=== PATIENT | male | born 1995 | race Two or more races ===

== ENCOUNTER 2020-07-02 16:52 | Emergency (ER) | payer MEDICAID, OTHER ==
[~2020-07-02] VITALS: Ht 175.3 cm; Wt 100.0 kg
[2020-07-02 16:59] VITALS: BP 132/74
--- NOTE | 2020-07-02 17:03 | NUR ---
Simran NEGRETE VIDEO EDITING INTERN EVALUATING PT
[2020-07-02] MEDS ORDERED: AMOX500C2 PO (17:14)
== END 2020-07-02 19:12 | disposition home or self-care (01) ==
LOC: ER 16:52
DX: J02.0 Streptococcal pharyngitis (principal); B95.0 Streptococcus, group A, as the cause of diseases classified elsewhere; Z72.89 Other problems related to lifestyle; Z88.8 Allergy status to other drugs, medicaments and biological substances; Z79.899 Other long term (current) drug therapy
CPT/HCPCS: 87880; 99283

== ENCOUNTER 2020-08-20 12:29 | Emergency (ER) | payer OTHER ==
[~2020-08-20] VITALS: Ht 175.3 cm; Wt 102.3 kg
[2020-08-20] MEDS ORDERED: meclizine 12.5mg tablet PO ONE (13:55)
[2020-08-20] MEDS ORDERED: MECL-159 PO (14:21)
[2020-08-20 14:39] VITALS: BP 118/77
== END 2020-08-20 14:36 | disposition home or self-care (01) ==
LOC: ER 12:29
DX: H81.10 Benign paroxysmal vertigo, unspecified ear (principal); Z79.899 Other long term (current) drug therapy; Z88.5 Allergy status to narcotic agent
CPT/HCPCS: 93005; 99283; J8597

== ENCOUNTER 2020-10-17 17:08 | Emergency (ER) | payer SELFPAY ==
[~2020-10-17] VITALS: Ht 175.3 cm; Wt 103.6 kg
[~2020-10-17 17:08] MED LIST: MECL-159 PO
[2020-10-17] MEDS ORDERED: TETanus/Pertussis (Acell)/Diphther VAC/PF (Tdap-Adult) 0.5ml syringe IMVAC ONE (17:35)
[2020-10-17] MEDS ORDERED: CEPH250T PO (18:10)
[2020-10-17 18:26] VITALS: BP 150/66
== END 2020-10-17 18:14 | disposition home or self-care (01) ==
LOC: ER 17:09
DX: S51.812A Laceration without foreign body of left forearm, initial encounter (principal); Z72.89 Other problems related to lifestyle; Z88.8 Allergy status to other drugs, medicaments and biological substances; Z79.2 Long term (current) use of antibiotics; Z79.899 Other long term (current) drug therapy; Z20.3 Contact with and (suspected) exposure to rabies; X58.XXXA Exposure to other specified factors, initial encounter; Y93.89 Activity, other specified; Y92.89 Other specified places as the place of occurrence of the external cause; Y99.8 Other external cause status
CPT/HCPCS: 12002; 90471; 90715; 99283

== ENCOUNTER 2023-03-18 16:28 | Emergency (ER) | payer MEDICAID ==
[~2023-03-18] VITALS: Ht 172.7 cm; Wt 92.4 kg
[2023-03-18] MEDS ORDERED: thiamine 100mg/ml 2ml inj. IV ONE (18:10)
[2023-03-18] MEDS ORDERED: folic acid 1mg/0.2ml inj IV ONE (18:10)
[2023-03-18] MEDS ORDERED: normal saline 1000ML IV soln IVB ONE (18:10)
[2023-03-18] MEDS ORDERED: ondansetron/PF 4mg/2ml inj IV ONE (18:10)
[2023-03-18 18:42] LABS: BASOPHILS % (AUTO) 1.2 % (0-1); EOSINOPHILS % (AUTO) 0.6 % (0-6); HEMATOCRIT 37.3 % (42.0-52.0); HEMOGLOBIN 12.6 g/dl (14.0-17.9); LYMPHOCYTES # (AUTO) 0.6 X10'3 (1.1-4.8); LYMPHOCYTES % (AUTO) 25.1 % (21-51); MEAN CORPUSCULAR HEMOGLOBIN 27.6 PG (27.0-31.0); MEAN CORPUSCULAR HGB CONC 33.7 g/dL (33.0-36.5); MEAN PLATELET VOLUME 8.8 FL (7.4-10.4); MONOCYTES # (AUTO) 0.3 X10'3 (0-0.9); MONOCYTES % (AUTO) 12.1 % (2-12); NEUTROPHILS # (AUTO) 1.5 X10'3 (1.8-7.7); RED BLOOD COUNT 4.55 X10'6 (4.70-6.10); RED CELL DISTRIBUTION WIDTH 18.8 % (11.5-14.5); WHITE BLOOD COUNT 2.5 X10'3 (4.5-11.0)
[2023-03-18 18:56] LABS: ALANINE AMINOTRANSFERASE 67 U/L (12-78); ALBUMIN 3.9 G/DL (3.4-5.0); ALBUMIN/GLOBULIN RATIO 0.7 (1.1-1.5); ALKALINE PHOSPHATASE 152 IU/L (46-116); ANION GAP 12 (8-16); ASPARTATE AMINO TRANSFERASE 174 U/L (10-37); BILIRUBIN,TOTAL 3.4 MG/DL (0.1-1.0); BLOOD UREA NITROGEN 4 MG/DL (7-18); BUN/CREATININE RATIO 5.3 (10.0-20.0); CALCIUM 8.6 MG/DL (8.5-10.1); CHLORIDE 97 MMOL/L (99-107); CREATININE 0.76 MG/DL (0.60-1.10); GLUCOSE 150 MG/DL (70-104); LIPASE 732 U/L (73-393); POTASSIUM 3.4 MMOL/L (3.5-5.1); SODIUM 133 MMOL/L (135-145); TOTAL CARBON DIOXIDE 23.8 MMOL/L (24-32); TOTAL PROTEIN 9.4 G/DL (6.4-8.2); eGFR > 90 ML/MIN
[2023-03-18 19:02] LABS: ETHANOL 0.317 GM/DL (0.0-0.010)
[2023-03-18 19:07] LABS: PLATELET COUNT 14 X10'3 (140-440)
--- NOTE | 2023-03-18 19:14 | NUR ---
CHARGE NURSE MAXWELL RESENDIZ NOTIFIED OF ADMISSION AND GIVEN FOLIC ACID IV MEDICATION.
[2023-03-18 19:40] LABS: ANISOCYTOSIS 2+; PLATELET ESTIMATE DECREASED; TOTAL CELLS COUNTED 100
[2023-03-18] MEDS ORDERED: THIA100T70 PO (21:00)
[2023-03-18] MEDS ORDERED: LEVE10002 PO (21:00)
[2023-03-18] MEDS ORDERED: TRAZ-251 PO (21:00)
--- NOTE | 2023-03-18 21:05 | NUR ---
PT IS RESTING QUIETLY ON BED, FAMILY AT BEDSIDE, MED REC DONE, PT C/O FEELING SHAKY, LAST ETOH INTAKE WAS TODAY, PT DRINKS 18 PACK + BEER A DAY
[2023-03-18] MEDS ORDERED: LORazepam 2 mg/ml vial IV ONE (21:15)
[2023-03-18] MEDS ORDERED: AMOX-117 PO (23:28)
[2023-03-18] MEDS ORDERED: ATI1T PO (23:28)
[2023-03-18 23:56] VITALS: BP 133/94
== END 2023-03-18 23:57 | disposition home or self-care (01) ==
LOC: ER 16:29
DX: K70.10 Alcoholic hepatitis without ascites (principal); K85.20 Alcohol induced acute pancreatitis without necrosis or infection; F12.10 Cannabis abuse, uncomplicated; K70.30 Alcoholic cirrhosis of liver without ascites; F10.129 Alcohol abuse with intoxication, unspecified; Z88.8 Allergy status to other drugs, medicaments and biological substances
CPT/HCPCS: 36415; 80053; 80320; 83690; 85007; 85025; 85610; 96361; 96374; 96375; 99285; J2060; J2405; J3411; J3490; J7030

== ENCOUNTER 2024-06-29 19:00 | Inpatient (IN) | payer MEDICAID ==
[~2024-06-29] VITALS: Ht 172.7 cm; Wt 108.9 kg
[2024-06-29] VITALS (7 sets, daily range): BP systolic 92–127; BP diastolic 44–82; PULSE 94–113; RESP 15–19; TEMP 97.6–98.1; O2SAT 92–97
[~2024-06-29 19:00] MED LIST changes: +ATI1T PO; +LEVE10002 PO; -MECL-159 PO; +THIA100T70 PO; +TRAZ-251 PO
[2024-06-29] MEDS: pantoprazole 40 MG vial IV STA (19:23)
[2024-06-29] MEDS: pantoprazole 40MG/NS 100ML BAG 100 ML IV SCH (19:37)
[2024-06-29 19:41] LABS: BASOPHILS # (AUTO) 0.1 X10'3 (0-0.2); EOSINOPHILS # (AUTO) 0.1 X10'3 (0-0.9); LYMPHOCYTES # (AUTO) 1.7 X10'3 (1.1-4.8)
[2024-06-29] MEDS: octreotide 100mcg/1 ml ampule IV ONE (19:44)
[2024-06-29] MEDS: octreotide inj. 500 MCG in normal saline 100ml IV soln 97.5 ML IV SCH (19:45)
[2024-06-29 19:52] LABS: APTT 29 SECONDS (22-32); INR 1.5 INR; PROTHROMBIN TIME 15.2 SECONDS (9.0-12.0)
[2024-06-29 19:53] LABS: HEMOGLOBIN 11.6 g/dl (14.0-17.9); NEUTROPHILS # (AUTO) 3.3 X10'3 (1.8-7.7)
[2024-06-29 19:55] LABS: ALANINE AMINOTRANSFERASE 47 U/L (12-78); ALBUMIN 2.9 G/DL (3.4-5.0); ALBUMIN/GLOBULIN RATIO 0.7 (1.1-1.5); ALKALINE PHOSPHATASE 175 IU/L (46-116); ANION GAP 12 (8-16); ASPARTATE AMINO TRANSFERASE 105 U/L (10-37); BASOPHILS % (AUTO) 1.8 % (0-1); BILIRUBIN,TOTAL 2.5 MG/DL (0.1-1.0); BLOOD UREA NITROGEN 8 MG/DL (7-18); BUN/CREATININE RATIO 8.8 (10.0-20.0); CALCIUM 7.5 MG/DL (8.5-10.1); CHLORIDE 105 MMOL/L (99-107); CREATININE 0.91 MG/DL (0.60-1.10); EOSINOPHILS % (AUTO) 1.4 % (0-6); GLUCOSE 161 MG/DL (70-104); HEMATOCRIT 34.2 % (42.0-52.0); LYMPHOCYTES % (AUTO) 29.2 % (21-51); MEAN CORPUSCULAR HEMOGLOBIN 28.5 PG (27.0-31.0); MEAN CORPUSCULAR HGB CONC 33.9 g/dL (33.0-36.5); MEAN CORPUSCULAR VOLUME 84.1 FL (78-98); MEAN PLATELET VOLUME 8.2 FL (7.4-10.4); MONOCYTES # (AUTO) 0.5 X10'3 (0-0.9); MONOCYTES % (AUTO) 9.3 % (2-12); NEUTROPHILS % (AUTO) 58.3 % (42-75); POTASSIUM 3.6 MMOL/L (3.5-5.1); RED BLOOD COUNT 4.07 X10'6 (4.70-6.10); RED CELL DISTRIBUTION WIDTH 16.8 % (11.5-14.5); SODIUM 138 MMOL/L (135-145); TOTAL CARBON DIOXIDE 21.1 MMOL/L (24-32); WHITE BLOOD COUNT 5.7 X10'3 (4.5-11.0); eCRCL 115 ML/MIN; eGFR > 90 ML/MIN
[2024-06-29 20:01] LABS: ETHANOL 366 MG/DL (<10)
[2024-06-29 20:07] LABS: PLATELET COUNT 36 X10'3 (140-440)
[2024-06-29] MEDS: ondansetron/PF 4mg/2ml inj IV ONE (20:11)
[2024-06-29] MEDS: phytonadione inj. 10 MG in normal saline 100ml IV soln 100 ML IV ONE (20:38)
[2024-06-29] MEDS ORDERED: acetaminophen 325mg tablet PO PRN (21:05)
[2024-06-29 21:20] LABS: BASOPHILS # (AUTO) 0.1 X10'3 (0-0.2); HEMOGLOBIN 10.7 g/dl (14.0-17.9); LYMPHOCYTES # (AUTO) 0.6 X10'3 (1.1-4.8); MEAN PLATELET VOLUME 8.3 FL (7.4-10.4); MONOCYTES # (AUTO) 0.4 X10'3 (0-0.9)
[2024-06-29 21:22] LABS: BASOPHILS % (AUTO) 1.2 % (0-1); EOSINOPHILS % (AUTO) 0.6 % (0-6); HEMATOCRIT 32.3 % (42.0-52.0); LYMPHOCYTES % (AUTO) 8.9 % (21-51); MEAN CORPUSCULAR HEMOGLOBIN 27.4 PG (27.0-31.0); MEAN CORPUSCULAR HGB CONC 33.2 g/dL (33.0-36.5); MEAN CORPUSCULAR VOLUME 82.6 FL (78-98); MONOCYTES % (AUTO) 5.7 % (2-12); NEUTROPHILS # (AUTO) 5.8 X10'3 (1.8-7.7); NEUTROPHILS % (AUTO) 83.6 % (42-75); RED BLOOD COUNT 3.91 X10'6 (4.70-6.10); RED CELL DISTRIBUTION WIDTH 18.7 % (11.5-14.5); WHITE BLOOD COUNT 6.9 X10'3 (4.5-11.0)
[2024-06-29 21:28] LABS: PLATELET COUNT 41 X10'3 (140-440)
[2024-06-29 21:50] LABS: ANISOCYTOSIS 1+; ELLIPTOCYTES FEW; PLATELET ESTIMATE DECREASED
[2024-06-29] MEDS ORDERED: levetiracetam inj 1,000 MG in normal saline 100ml IV soln 100 ML IV ONE (22:05)
[2024-06-29] MEDS: metoclopramide 5 mg/ml inj IV ONE (22:17)
[2024-06-29] MEDS: levetiracetam-NS 1000mg/100ml 100 ML IV ONE (22:22)
[2024-06-29] MEDS: LidoCAINE 2% Topical Jelly 11mL syringe (UROJET) TOP ONE (22:35)
[2024-06-30] VITALS (33 sets, daily range): BP systolic 108–146; BP diastolic 55–85; PULSE 80–110; RESP 10–18; TEMP 98; O2SAT 91–100
[2024-06-30 01:42] LABS: INR 1.6 INR; PROTHROMBIN TIME 15.9 SECONDS (9.0-12.0)
[2024-06-30 01:43] LABS: ALBUMIN 2.7 G/DL (3.4-5.0); ANION GAP 9 (8-16); BLOOD UREA NITROGEN 10 MG/DL (7-18); BUN/CREATININE RATIO 18.2 (10.0-20.0); CALCIUM 7.2 MG/DL (8.5-10.1); CHLORIDE 109 MMOL/L (99-107); CREATININE 0.55 MG/DL (0.60-1.10); GLUCOSE 134 MG/DL (70-104); MAGNESIUM 1.5 MG/DL (1.5-2.4); POTASSIUM 4.3 MMOL/L (3.5-5.1); SODIUM 141 MMOL/L (135-145); TOTAL CARBON DIOXIDE 22.8 MMOL/L (24-32); eCRCL 190 ML/MIN; eGFR > 90 ML/MIN
[2024-06-30 02:01] LABS: PHOSPHORUS 4.9 MG/DL (2.3-4.5)
[2024-06-30 02:02] LABS: EOSINOPHILS % (AUTO) 0.1 % (0-6); HEMOGLOBIN 10.7 g/dl (14.0-17.9); MONOCYTES # (AUTO) 0.5 X10'3 (0-0.9); WHITE BLOOD COUNT 5.5 X10'3 (4.5-11.0)
[2024-06-30 02:03] LABS: BASOPHILS % (AUTO) 0.6 % (0-1); LYMPHOCYTES # (AUTO) 0.4 X10'3 (1.1-4.8); MEAN CORPUSCULAR HEMOGLOBIN 27.9 PG (27.0-31.0); MEAN CORPUSCULAR HGB CONC 33.4 g/dL (33.0-36.5); MEAN CORPUSCULAR VOLUME 83.6 FL (78-98); MEAN PLATELET VOLUME 8.9 FL (7.4-10.4); MONOCYTES % (AUTO) 9.8 % (2-12); NEUTROPHILS # (AUTO) 4.5 X10'3 (1.8-7.7); NEUTROPHILS % (AUTO) 81.5 % (42-75); RED BLOOD COUNT 3.82 X10'6 (4.70-6.10); RED CELL DISTRIBUTION WIDTH 19.4 % (11.5-14.5)
[2024-06-30 02:06] LABS: PLATELET COUNT 42 X10'3 (140-440)
[2024-06-30] MEDS: octreotide inj. 500 MCG in normal saline 100ml IV soln 97.5 ML IV SCH (03:23)
[2024-06-30] MEDS: pantoprazole 40MG/NS 100ML BAG 100 ML IV SCH (05:05)
[2024-06-30] MEDS ORDERED: haloperidol 5mg tablet PO PRN (10:10)
[2024-06-30] MEDS ORDERED: dextrose 50%-water 50ml dispensing syringe IV PRN (10:10)
[2024-06-30] MEDS ORDERED: haloperidol lactate 5mg/ml inj IM PRN (10:10)
[2024-06-30] MEDS ORDERED: FOLI1TAB27 PO (10:19)
[2024-06-30] MEDS ORDERED: LACT10SO67 PO (10:19)
[2024-06-30] MEDS ORDERED: GABA300C PO (10:19)
[2024-06-30] MEDS ORDERED: OMEP40CA21 PO (10:20)
[2024-06-30] MEDS ORDERED: glucagon, human recombinant 1mg kit ONE (11:26)
[2024-06-30] MEDS ORDERED: epiNEPHrine 0.1mg/ml 10ml syringe ONE (11:27)
[2024-06-30] MEDS ORDERED: LIDOcaine 2% Viscous 15ml cup ONE (11:27)
[2024-06-30] MEDS ORDERED: fentaNYL/PF 50MCG/1 ML 2ML syringe ONE (12:21)
[2024-06-30] MEDS ORDERED: MIDAZolam 1 MG/ML 5ML VIAL ONE (12:21)
[2024-06-30] MEDS ORDERED: labetalol 20mg/4ml (5mg/ml) syringe IV PRN (13:40)
[2024-06-30] MEDS ORDERED: ondansetron/PF 4mg/2ml inj IV PRN (13:40)
[2024-06-30] MEDS ORDERED: fentaNYL/PF 50MCG/1 ML 2ML syringe IV PRN ×2 (13:40)
[2024-06-30] MEDS ORDERED: morphine 4 MG/ML inj SYRINge IV PRN (13:40)
[2024-06-30] MEDS ORDERED: morphine 2 MG/ML inj. syringe IV PRN (13:40)
[2024-06-30] MEDS ORDERED: hydrALAZINE 20mg/ml inj. IV PRN (13:40)
[2024-06-30] MEDS: ondansetron/PF 4mg/2ml inj IV PRN (13:58)
[2024-06-30] MEDS: thiamine 100mg/ml 2ml inj. IV SCH (13:58)
[2024-06-30] MEDS: ringers solution, lacted 1,000 ML IV SCH (15:31)
[2024-06-30] MEDS ORDERED: midazolam 1 mg/ML 2ml injection ONE (15:32)
[2024-06-30] MEDS ORDERED: rocuronium 10mg/ml inj IV ONE (15:33)
[2024-06-30] MEDS ORDERED: propofol inj 20 ML IV ONE (15:33)
[2024-06-30] MEDS ORDERED: sugammadex 200mg/2ml injection IV ONE (15:34)
[2024-06-30] MEDS ORDERED: sevoflurane 250ml liquid IH ONE (15:45)
[2024-06-30] MEDS: morphine 4 MG/ML inj SYRINge IV PRN (18:52)
[2024-06-30] MEDS: pantoprazole 40 MG vial IV SCH (20:06)
[2024-07-01] MEDS: normal saline 1000ml 1,000 ML IV SCH (00:04)
[2024-07-01] MEDS: morphine 2 MG/ML inj. syringe IV PRN (03:29)
[2024-07-01 06:00] VITALS: BP 140/82; PULSE 100; RESP 16; TEMP 98.1; O2SAT 96
[2024-07-01 06:31] LABS: BASOPHILS % (AUTO) 0.8 % (0-1); EOSINOPHILS % (AUTO) 0.8 % (0-6); HEMATOCRIT 27.5 % (42.0-52.0); HEMOGLOBIN 9.2 g/dl (14.0-17.9); LYMPHOCYTES # (AUTO) 0.3 X10'3 (1.1-4.8); LYMPHOCYTES % (AUTO) 8.4 % (21-51); MEAN CORPUSCULAR HEMOGLOBIN 28.3 PG (27.0-31.0); MEAN CORPUSCULAR HGB CONC 33.4 g/dL (33.0-36.5); MEAN CORPUSCULAR VOLUME 84.7 FL (78-98); MEAN PLATELET VOLUME 8.9 FL (7.4-10.4); MONOCYTES # (AUTO) 0.5 X10'3 (0-0.9); NEUTROPHILS # (AUTO) 2.5 X10'3 (1.8-7.7); RED BLOOD COUNT 3.24 X10'6 (4.70-6.10); RED CELL DISTRIBUTION WIDTH 19.1 % (11.5-14.5); WHITE BLOOD COUNT 3.3 X10'3 (4.5-11.0)
[2024-07-01 06:34] LABS: INR 1.5 INR
[2024-07-01 06:43] LABS: ALBUMIN 2.8 G/DL (3.4-5.0); AMYLASE 109 U/L (25-115); ANION GAP 9 (8-16); BLOOD UREA NITROGEN 12 MG/DL (7-18); BUN/CREATININE RATIO 18.8 (10.0-20.0); CALCIUM 7.7 MG/DL (8.5-10.1); CHLORIDE 106 MMOL/L (99-107); CREATININE 0.64 MG/DL (0.60-1.10); GLUCOSE 122 MG/DL (70-104); LIPASE 124 U/L (16-77); MAGNESIUM 1.8 MG/DL (1.5-2.4); POTASSIUM 3.7 MMOL/L (3.5-5.1); SODIUM 140 MMOL/L (135-145); TOTAL CARBON DIOXIDE 25.4 MMOL/L (24-32); eCRCL 163 ML/MIN; eGFR > 90 ML/MIN
[2024-07-01 06:46] LABS: PHOSPHORUS 3.1 MG/DL (2.3-4.5)
[2024-07-01] MEDS: LORazepam 2 mg/ml vial IV PRN (07:04)
[2024-07-01 07:10] LABS: PLATELET COUNT 21 X10'3 (140-440)
[2024-07-01 07:11] LABS: PLATELET ESTIMATE DECREASED
[2024-07-01 07:12] LABS: ANISOCYTOSIS 2+; ELLIPTOCYTES FEW; HYPOCHROMASIA 1+; POLYCHROMASIA 1+; TARGET CELLS FEW
[2024-07-01] MEDS: multivitamins, therapeutics tablet PO SCH (08:00)
[2024-07-01 08:15] VITALS: RESP 20; O2SAT 96
[2024-07-01] MEDS: CefTRIAXone/D5W-Rocephin 1gm 50 ML IV SCH (08:43)
[2024-07-01] MEDS: folic acid 1mg/0.2ml inj IV SCH (08:50)
[2024-07-01 10:00] VITALS: BP 140/85; PULSE 102; RESP 20; TEMP 98.2; O2SAT 96
[2024-07-01] MEDS ORDERED: SPIR25TA5 PO (12:50)
[2024-07-01] MEDS: levetiracetam 250mg tablet PO SCH (13:21)
[2024-07-01 16:11] LABS: BASOPHILS % (AUTO) 0.6 % (0-1); EOSINOPHILS # (AUTO) 0.1 X10'3 (0-0.9); EOSINOPHILS % (AUTO) 2.2 % (0-6); HEMATOCRIT 26.6 % (42.0-52.0); HEMOGLOBIN 8.7 g/dl (14.0-17.9); LYMPHOCYTES # (AUTO) 0.3 X10'3 (1.1-4.8); LYMPHOCYTES % (AUTO) 8.9 % (21-51); MEAN CORPUSCULAR HEMOGLOBIN 27.9 PG (27.0-31.0); MEAN CORPUSCULAR HGB CONC 32.7 g/dL (33.0-36.5); MEAN CORPUSCULAR VOLUME 85.5 FL (78-98); MEAN PLATELET VOLUME 8.6 FL (7.4-10.4); MONOCYTES # (AUTO) 0.3 X10'3 (0-0.9); MONOCYTES % (AUTO) 9.8 % (2-12); NEUTROPHILS # (AUTO) 2.5 X10'3 (1.8-7.7); NEUTROPHILS % (AUTO) 78.5 % (42-75); RED BLOOD COUNT 3.12 X10'6 (4.70-6.10); RED CELL DISTRIBUTION WIDTH 18.8 % (11.5-14.5); WHITE BLOOD COUNT 3.2 X10'3 (4.5-11.0)
[2024-07-01 16:14] LABS: PLATELET COUNT 20 X10'3 (140-440)
[2024-07-01 18:00] VITALS: BP 118/73; PULSE 94; RESP 14; TEMP 98.9; O2SAT 97
[2024-07-01 20:00] VITALS: RESP 14; O2SAT 97
[2024-07-01] MEDS ORDERED: levetiracetam 250mg tablet PO SCH (20:00)
[2024-07-01] MEDS: lactulose 20gm/30ml cup PO SCH (20:29)
[2024-07-01] MEDS: carvedilol 6.25mg tablet PO SCH (20:30)
[2024-07-01] MEDS: gabapentin 300mg capsule PO SCH (20:36)
[2024-07-01 22:00] VITALS: BP 126/72; PULSE 93; RESP 17; TEMP 98.5; O2SAT 95
[2024-07-02 06:00] VITALS: BP_SYST 129; BP_SYST 140; BP_DIAS 68; BP_DIAS 82; PULSE 100; PULSE 89; RESP 15; RESP 16; TEMP 97.9; TEMP 98.1; O2SAT 96; O2SAT 97
[2024-07-02 07:21] LABS: INR 1.6 INR; PROTHROMBIN TIME 16.1 SECONDS (9.0-12.0)
[2024-07-02 07:29] LABS: ALBUMIN 2.4 G/DL (3.4-5.0); AMYLASE 57 U/L (25-115); ANION GAP 6 (8-16); BLOOD UREA NITROGEN 14 MG/DL (7-18); BUN/CREATININE RATIO 18.4 (10.0-20.0); CALCIUM 7.5 MG/DL (8.5-10.1); CHLORIDE 103 MMOL/L (99-107); CREATININE 0.76 MG/DL (0.60-1.10); GLUCOSE 94 MG/DL (70-104); LIPASE 83 U/L (16-77); MAGNESIUM 1.7 MG/DL (1.5-2.4); PHOSPHORUS 2.8 MG/DL (2.3-4.5); POTASSIUM 3.3 MMOL/L (3.5-5.1); SODIUM 134 MMOL/L (135-145); TOTAL CARBON DIOXIDE 25.5 MMOL/L (24-32); eCRCL 138 ML/MIN; eGFR > 90 ML/MIN
[2024-07-02] MEDS ORDERED: magnesium Cl slow-release 64mg tablet PO PRN (07:55)
[2024-07-02] MEDS ORDERED: potassium Cl 20 mEq SR tablet PO PRN (07:55)
[2024-07-02 09:18] LABS: BASOPHILS % (AUTO) 0.9 % (0-1); EOSINOPHILS # (AUTO) 0.1 X10'3 (0-0.9); EOSINOPHILS % (AUTO) 3.5 % (0-6); HEMATOCRIT 27.4 % (42.0-52.0); HEMOGLOBIN 9.1 g/dl (14.0-17.9); LYMPHOCYTES # (AUTO) 0.4 X10'3 (1.1-4.8); LYMPHOCYTES % (AUTO) 13.1 % (21-51); MEAN CORPUSCULAR HEMOGLOBIN 28.7 PG (27.0-31.0); MEAN CORPUSCULAR HGB CONC 33.3 g/dL (33.0-36.5); MEAN CORPUSCULAR VOLUME 86.2 FL (78-98); MEAN PLATELET VOLUME 9.1 FL (7.4-10.4); MONOCYTES # (AUTO) 0.5 X10'3 (0-0.9); NEUTROPHILS # (AUTO) 2.2 X10'3 (1.8-7.7); NEUTROPHILS % (AUTO) 67.5 % (42-75); RED BLOOD COUNT 3.17 X10'6 (4.70-6.10); WHITE BLOOD COUNT 3.3 X10'3 (4.5-11.0)
[2024-07-02 09:31] LABS: PLATELET COUNT 23 X10'3 (140-440)
[2024-07-02] MEDS ORDERED: LORazepam 1 MG tablet PO PRN (10:10)
[2024-07-02] MEDS ORDERED: LORazepam 2 mg/ml vial IV PRN (10:10)
[2024-07-02 10:30] VITALS: BP 124/74; PULSE 74; RESP 18; TEMP 98.3; O2SAT 98
[2024-07-02 10:45] VITALS: RESP 15; O2SAT 97
[2024-07-02 18:00] VITALS: BP 94/59; PULSE 74; RESP 15; TEMP 98.4; O2SAT 98
[2024-07-02 20:00] VITALS: RESP 15; O2SAT 97
[2024-07-02 22:00] VITALS: BP 117/64; PULSE 81; RESP 16; TEMP 98.3; O2SAT 98
[2024-07-03] MEDS: potassium Cl 20 mEq SR tablet PO PRN (00:08)
[2024-07-03 05:57] LABS: BASOPHILS % (AUTO) 1.2 % (0-1); EOSINOPHILS # (AUTO) 0.1 X10'3 (0-0.9); EOSINOPHILS % (AUTO) 4.2 % (0-6); HEMATOCRIT 27.3 % (42.0-52.0); HEMOGLOBIN 9.2 g/dl (14.0-17.9); LYMPHOCYTES # (AUTO) 0.5 X10'3 (1.1-4.8); LYMPHOCYTES % (AUTO) 16.7 % (21-51); MEAN CORPUSCULAR HEMOGLOBIN 28.7 PG (27.0-31.0); MEAN CORPUSCULAR HGB CONC 33.5 g/dL (33.0-36.5); MEAN CORPUSCULAR VOLUME 85.6 FL (78-98); MEAN PLATELET VOLUME 8.8 FL (7.4-10.4); MONOCYTES # (AUTO) 0.4 X10'3 (0-0.9); MONOCYTES % (AUTO) 14.5 % (2-12); NEUTROPHILS # (AUTO) 1.7 X10'3 (1.8-7.7); NEUTROPHILS % (AUTO) 63.4 % (42-75); RED BLOOD COUNT 3.19 X10'6 (4.70-6.10); RED CELL DISTRIBUTION WIDTH 19.6 % (11.5-14.5); WHITE BLOOD COUNT 2.7 X10'3 (4.5-11.0)
[2024-07-03 05:59] LABS: PLATELET COUNT 24 X10'3 (140-440)
[2024-07-03 06:06] LABS: INR 1.6 INR; PROTHROMBIN TIME 15.8 SECONDS (9.0-12.0)
[2024-07-03 06:14] LABS: ALBUMIN 2.5 G/DL (3.4-5.0); AMYLASE 51 U/L (25-115); ANION GAP 7 (8-16); BLOOD UREA NITROGEN 13 MG/DL (7-18); CHLORIDE 101 MMOL/L (99-107); CREATININE 0.65 MG/DL (0.60-1.10); GLUCOSE 90 MG/DL (70-104); LIPASE 80 U/L (16-77); MAGNESIUM 1.7 MG/DL (1.5-2.4); PHOSPHORUS 3.9 MG/DL (2.3-4.5); POTASSIUM 3.2 MMOL/L (3.5-5.1); SODIUM 133 MMOL/L (135-145); TOTAL CARBON DIOXIDE 25.5 MMOL/L (24-32); eCRCL 161 ML/MIN; eGFR > 90 ML/MIN
[2024-07-03 07:00] VITALS: BP 109/60; PULSE 74; RESP 16; TEMP 98.1; O2SAT 96
[2024-07-03] MEDS: CefTRIAXone/D5W-Rocephin 1gm 50 ML IV ONE (08:11)
[2024-07-03 08:58] LABS: ANISOCYTOSIS 2+; HYPOCHROMASIA 1+; PLATELET ESTIMATE DECREASED; POLYCHROMASIA FEW; TOTAL CELLS COUNTED 100
[2024-07-03 08:59] LABS: ELLIPTOCYTES FEW; TARGET CELLS FEW; TEAR DROP CELLS FEW
[2024-07-03] MEDS ORDERED: CARV6.252 PO (17:37)
[2024-07-03] MEDS ORDERED: OMEP40CA21 PO (17:37)
[2024-07-04] MEDS ORDERED: LORazepam 1 MG tablet PO PRN (10:10)
[2024-07-04] MEDS ORDERED: LORazepam 2 mg/ml vial IV PRN (10:10)
== END 2024-07-03 14:23 | disposition home or self-care (01) | DRG 280 ==
LOC: EEVIPCON 19:00 → ER 19:00 → ED HOLD 21:31 → CICU 2S 22:57 → SUR 3N 06-30 21:10
PROVIDERS: ADMIT Student in an Organized Health Care Education/Training Program; ATTEND Student in an Organized Health Care Education/Training Program
PROC: 02HV33Z Insertion of Infusion Device into Superior Vena Cava, Percutaneous Approach (ICD-10-PCS; 2024-06-29)
PROC: B548ZZA Ultrasonography of Superior Vena Cava, Guidance (ICD-10-PCS; 2024-06-29)
PROC: 30233N1 Transfusion of Nonautologous Red Blood Cells into Peripheral Vein, Percutaneous Approach (ICD-10-PCS; 2024-06-29)
PROC: 30233R1 Transfusion of Nonautologous Platelets into Peripheral Vein, Percutaneous Approach (ICD-10-PCS; 2024-06-29)
PROC: 06L38CZ Occlusion of Esophageal Vein with Extraluminal Device, Via Natural or Artificial Opening Endoscopic (ICD-10-PCS; principal; 2024-06-30 15:45)
DX: K70.30 Alcoholic cirrhosis of liver without ascites (principal); I85.11 Secondary esophageal varices with bleeding; K72.10 Chronic hepatic failure without coma; D69.59 Other secondary thrombocytopenia; E83.51 Hypocalcemia; E88.09 Other disorders of plasma-protein metabolism, not elsewhere classified; E83.39 Other disorders of phosphorus metabolism; R79.1 Abnormal coagulation profile; D72.810 Lymphocytopenia; F10.10 Alcohol abuse, uncomplicated; D50.0 Iron deficiency anemia secondary to blood loss (chronic); Y90.8 Blood alcohol level of 240 mg/100 ml or more; F17.210 Nicotine dependence, cigarettes, uncomplicated; Z88.8 Allergy status to other drugs, medicaments and biological substances; Z81.1 Family history of alcohol abuse and dependence; Z83.3 Family history of diabetes mellitus; Z71.6 Tobacco abuse counseling
CPT/HCPCS: 36415; 36430; 43235; 43244; 43255; 71045; 80048; 80053; 80320; 82150; 82948; 83690; 83735; 84100; 84132; 85007; 85008; 85025; 85610; 85730; 86885; 86900; 86901; 86920; 87081; 93005; 96365; 96367; 96375; 99152; 99291; A4615; A4618; A4620; A6258; A6449; C1751; C1894; G0378; J0171; J0696; J1610; J1953; J2060; J2250; J2270; J2354; J2405; J2470; J2704; J2765; J3010; J3411; J3430; J3490; J7030; J7040; J7120; P9016; P9035

== ENCOUNTER 2024-07-08 17:20 | Emergency (ER) | payer MEDICAID ==
[~2024-07-08] VITALS: Ht 172.7 cm; Wt 118.8 kg
[~2024-07-08 17:20] MED LIST changes: -ATI1T PO; +CARV6.252 PO; +FOLI1TAB27 PO; +GABA300C PO; +LACT10SO67 PO; +OMEP40CA21 PO; +SPIR25TA5 PO; -THIA100T70 PO; -TRAZ-251 PO
[2024-07-08 18:42] LABS: HEMATOCRIT 26.6 % (42.0-52.0); LYMPHOCYTES # (AUTO) 0.3 X10'3 (1.1-4.8); MONOCYTES # (AUTO) 0.3 X10'3 (0-0.9); WHITE BLOOD COUNT 1.8 X10'3 (4.5-11.0)
[2024-07-08 18:44] LABS: BASOPHILS % (AUTO) 1.5 % (0-1); EOSINOPHILS % (AUTO) 1.7 % (0-6); HEMOGLOBIN 8.6 g/dl (14.0-17.9); LYMPHOCYTES % (AUTO) 15.3 % (21-51); MEAN CORPUSCULAR HEMOGLOBIN 27.6 PG (27.0-31.0); MEAN CORPUSCULAR HGB CONC 32.3 g/dL (33.0-36.5); MEAN CORPUSCULAR VOLUME 85.6 FL (78-98); MEAN PLATELET VOLUME 8.7 FL (7.4-10.4); MONOCYTES % (AUTO) 18.7 % (2-12); NEUTROPHILS # (AUTO) 1.1 X10'3 (1.8-7.7); NEUTROPHILS % (AUTO) 62.8 % (42-75); RED BLOOD COUNT 3.11 X10'6 (4.70-6.10); RED CELL DISTRIBUTION WIDTH 19.9 % (11.5-14.5)
[2024-07-08 18:57] LABS: ALANINE AMINOTRANSFERASE 34 U/L (12-78); ALBUMIN 2.9 G/DL (3.4-5.0); ALBUMIN/GLOBULIN RATIO 0.8 (1.1-1.5); ALKALINE PHOSPHATASE 201 IU/L (46-116); ANION GAP 6 (8-16); ASPARTATE AMINO TRANSFERASE 68 U/L (10-37); BILIRUBIN,TOTAL 2.3 MG/DL (0.1-1.0); BLOOD UREA NITROGEN 5 MG/DL (7-18); BUN/CREATININE RATIO 7.1 (10.0-20.0); CALCIUM 7.9 MG/DL (8.5-10.1); CHLORIDE 102 MMOL/L (99-107); GLUCOSE 120 MG/DL (70-104); POTASSIUM 3.3 MMOL/L (3.5-5.1); SODIUM 133 MMOL/L (135-145); TOTAL CARBON DIOXIDE 25.2 MMOL/L (24-32); TOTAL PROTEIN 6.6 G/DL (6.4-8.2); eCRCL 149 ML/MIN; eGFR > 90 ML/MIN
[2024-07-08 19:04] LABS: PRO BRAIN NATRIURETIC PEPTIDE 117 PG/ML (0-125)
[2024-07-08 19:17] LABS: PLATELET COUNT 46 X10'3 (140-440)
[2024-07-08 19:35] LABS: TOTAL CELLS COUNTED 100
[2024-07-08 19:36] LABS: ANISOCYTOSIS 2+; PLATELET ESTIMATE DECREASED
[2024-07-08 19:40] LABS: HYPOCHROMASIA 1+
[2024-07-08 19:41] LABS: BURR CELLS FEW; SCHISTOCYTES FEW; TARGET CELLS FEW
[2024-07-08 19:42] LABS: ELLIPTOCYTES FEW; POIKILOCYTOSIS 1+; SMUDGE CELLS FEW
[2024-07-08] MEDS: furosemide 10 MG/1 ML 10ml inj IV ONE (20:32)
[2024-07-08] MEDS: POTASSIUM BICARB 20meq eff tab 20 MEQ TABLET.EFF PO ONE (20:32)
[2024-07-08 21:07] LABS: BILIRUBIN,URINE NEGATIVE (Neg); CLARITY,URINE CLEAR (Clear); COLOR,URINE YELLOW (Yellow); GLUCOSE, URINE NEGATIVE (Neg); KETONES,URINE NEGATIVE (Neg); LEUKOCYTE ESTERASE ,URINE NEGATIVE (Neg); NITRITES, URINE NEGATIVE (Neg); OCCULT BLOOD,URINE NEGATIVE (Neg); PROTEIN,URINE NEGATIVE (Neg); UROBILINOGEN,URINE 0.2 E.U/dL (0.2-1.0)
[2024-07-08 21:26] LABS: URINE AMPHETAMINE SCREEN NEGATIVE (Neg); URINE BARBITUATE SCREEN NEGATIVE (Neg); URINE BENZODIAZEPINES SCREEN NEGATIVE (Neg); URINE CANNABINOID SCREEN POSITIVE (Neg); URINE COCAINE SCREEN NEGATIVE (Neg); URINE METHADONE SCREEN NEGATIVE (Neg); URINE OPIATE SCREEN NEGATIVE (Neg); URINE PHENCYCLIDINE SCREEN NEGATIVE (Neg)
[2024-07-08 21:31] LABS: UA COLLECTION TYPE NON-SPECIFIED
[2024-07-08 21:32] VITALS: BP 123/66; PULSE 88; RESP 17; TEMP 98.6; O2SAT 100
== END 2024-07-08 21:34 | disposition home or self-care (01) ==
LOC: ER 17:21
DX: R60.9 Edema, unspecified (principal); D64.9 Anemia, unspecified; E87.6 Hypokalemia; D72.819 Decreased white blood cell count, unspecified; F12.90 Cannabis use, unspecified, uncomplicated; F17.200 Nicotine dependence, unspecified, uncomplicated; Z83.3 Family history of diabetes mellitus; Z88.8 Allergy status to other drugs, medicaments and biological substances
CPT/HCPCS: 36415; 71045; 80053; 80305; 81003; 83880; 84484; 85007; 85025; 93005; 96374; 99285; J1940

== ENCOUNTER 2024-07-19 21:02 | Inpatient (IN) | payer MEDICAID ==
[~2024-07-19] VITALS: Ht 177.8 cm; Wt 101.1 kg
[2024-07-19] MEDS ORDERED: levetiracetam inj 1,000 MG in normal saline 100ml IV soln 100 ML IV ONE (21:15)
[2024-07-19 21:16] VITALS: PULSE 139; RESP 16; O2SAT 100
[2024-07-19] MEDS ORDERED: octreotide inj. 1,250 MCG in normal saline 250ml IV soln 250 ML IV ONE (21:25)
[2024-07-19 21:30] LABS: BASOPHILS # (AUTO) 0.1 X10'3 (0-0.2); EOSINOPHILS # (AUTO) 0.3 X10'3 (0-0.9); EOSINOPHILS % (AUTO) 2.4 % (0-6); LYMPHOCYTES # (AUTO) 2.6 X10'3 (1.1-4.8); LYMPHOCYTES % (AUTO) 22.7 % (21-51); MONOCYTES # (AUTO) 1.1 X10'3 (0-0.9); NEUTROPHILS # (AUTO) 7.3 X10'3 (1.8-7.7); NEUTROPHILS % (AUTO) 63.9 % (42-75)
[2024-07-19 21:42] LABS: ABG HCO3 12.8 mmol/L (21.0-28.0); ABG OXYGEN SATURATION 98.9 % (94.0-98.0); ABG PCO2 (T) 53.8 mmHg (35.0-48.0); ABG PH (T) 6.997 (7.350-7.450); ABG PO2 (T) 205.8 mmHg (83.0-108.0); ALLEN'S TEST Modified; FCOHb 0.3 % (0.5-1.5); FHHb 1.1 % (0.0-5.0); FMetHb 0.5 % (0.0-1.5); FO2Hb 98.1 % (94.0-98.0); MODE VENT - prvc; PATIENT TEMPERATURE 37.4; PEEP 5 cm H2O; RESPIRATORY RATE 16 b/min; TIDAL VOLUME 450 mL; TOTAL HEMOGLOBIN 10.7 G/dl (13.5-17.5)
[2024-07-19 21:51] LABS: ALBUMIN 3.3 G/DL (3.4-5.0); ANION GAP 24 (8-16); BLOOD UREA NITROGEN 8 MG/DL (7-18); BUN/CREATININE RATIO 5.6 (10.0-20.0); CALCIUM 8.6 MG/DL (8.5-10.1); CHLORIDE 99 MMOL/L (99-107); CREATINE KINASE 278 U/L (39-308); CREATININE 1.42 MG/DL (0.60-1.10); MAGNESIUM 2.7 MG/DL (1.5-2.4); POTASSIUM 3.4 MMOL/L (3.5-5.1); SODIUM 136 MMOL/L (135-145); eCRCL 79 ML/MIN; eGFR 59 ML/MIN
[2024-07-19 21:55] LABS: GLUCOSE 132 MG/DL (70-104)
[2024-07-19 21:56] LABS: ETHANOL < 10 MG/DL (<10); PHENYTOIN (DILANTIN) < 0.5 UG/ML (10.0-20.0); TOTAL CARBON DIOXIDE 13.5 MMOL/L (24-32)
[2024-07-19] MEDS ORDERED: iohexol 300mg/ml 100ml inj. ONE (22:03)
[2024-07-19 22:17] LABS: LACTIC SEPSIS 16.1 MMOL/L (0.4-2.0)
[2024-07-19 22:18] LABS: BILIRUBIN,URINE NEGATIVE (Neg); CLARITY,URINE CLEAR (Clear); COLOR,URINE YELLOW (Yellow); GLUCOSE, URINE 100 mg/dl (Neg); KETONES,URINE NEGATIVE (Neg); LEUKOCYTE ESTERASE ,URINE NEGATIVE (Neg); NITRITES, URINE NEGATIVE (Neg); OCCULT BLOOD,URINE LARGE (Neg); PH,URINE 6.5 (4.8-8.0); PROTEIN,URINE >=300 mg/dl (Neg); UROBILINOGEN,URINE 0.2 E.U/dL (0.2-1.0)
[2024-07-19 22:22] LABS: UA COLLECTION TYPE FOLEY CATH
[2024-07-19] MEDS: normal saline 1000ML IV soln IVB ONE (22:24)
[2024-07-19] MEDS: pantoprazole 40 MG vial IV ONE (22:26)
[2024-07-19 22:28] LABS: HEMATOCRIT 30.2 % (42.0-52.0); HEMOGLOBIN 9.6 g/dl (14.0-17.9); MEAN CORPUSCULAR HEMOGLOBIN 25.6 PG (27.0-31.0); MEAN CORPUSCULAR HGB CONC 31.7 g/dL (33.0-36.5); MEAN CORPUSCULAR VOLUME 80.6 FL (78-98); MEAN PLATELET VOLUME 8.6 FL (7.4-10.4); PLATELET COUNT 110 X10'3 (140-440); RED BLOOD COUNT 3.74 X10'6 (4.70-6.10); RED CELL DISTRIBUTION WIDTH 20.5 % (11.5-14.5); WHITE BLOOD COUNT 11.2 X10'3 (4.5-11.0)
[2024-07-19 22:30] LABS: BACTERIA,URINE 2+ /HPF (Neg); SQUAMOUS EPITHELIAL CELL,UR FEW /LPF (FEW)
[2024-07-19 22:31] LABS: AMORPHOUS URATES 2+; MUCUS STRANDS FEW /LPF (Neg); RENAL CELLS, URINE FEW /HPF
[2024-07-19] MEDS: sodium bicarbonate (8.4%) 1 mEq/ml syringe IV ONE (22:32)
[2024-07-19 22:33] LABS: RBC,URINE TNTC /HPF (0-2)
[2024-07-19 22:37] LABS: URINE AMPHETAMINE SCREEN NEGATIVE (Neg); URINE BARBITUATE SCREEN NEGATIVE (Neg); URINE BENZODIAZEPINES SCREEN NEGATIVE (Neg); URINE CANNABINOID SCREEN NEGATIVE (Neg); URINE COCAINE SCREEN NEGATIVE (Neg); URINE METHADONE SCREEN NEGATIVE (Neg); URINE OPIATE SCREEN NEGATIVE (Neg); URINE PHENCYCLIDINE SCREEN NEGATIVE (Neg)
[2024-07-19] MEDS: octreotide inj. 1,250 MCG in normal saline 250ml IV soln 243.75 ML IV ONE (22:38)
[2024-07-19] MEDS: FOSphenytoin 500mg inj. 1,000 MG in normal saline 100ml IV soln 80 ML IV ONE (22:55)
[2024-07-19] MEDS: levetiracetam-NS 1000mg/100ml 100 ML IV ONE ×4 (22:56→23:18)
[2024-07-19] MEDS: LevETIRAcetam 500 MG in NORMAL SALINE 100ml IV.SOLN IV ONE (22:57)
[2024-07-19] MEDS: propofol 1000mg/100ml bottle 100 ML IV PRN (23:23)
[2024-07-19 23:45] VITALS: PULSE 105; RESP 15; O2SAT 95
[2024-07-19] MEDS: LORazepam 2 mg/ml vial IV ONE (23:59)
[2024-07-20] VITALS (69 sets, daily range): BP systolic 78–123; BP diastolic 37–70; PULSE 76–104; RESP 14–23; O2SAT 90–99
[2024-07-20] MEDS: rocuronium 10mg/ml inj IV ONE (00:28)
[2024-07-20] MEDS: LidoCAINE 2% Topical Jelly 11mL syringe (UROJET) TOP ONE (02:28)
[2024-07-20 04:23] LABS: ABG BASE EXCESS -4.3 mmol/L (-2.0-3.0); ABG HCO3 21.2 mmol/L (21.0-28.0); ABG OXYGEN SATURATION 95.8 % (94.0-98.0); ABG PH (T) 7.325 (7.350-7.450); ALLEN'S TEST Modified; FCOHb 0.1 % (0.5-1.5); FHHb 4.2 % (0.0-5.0); FO2Hb 95.7 % (94.0-98.0); MODE PRVC; PEEP 5 cm H2O; RESPIRATORY RATE 16 b/min; TIDAL VOLUME 450 mL; TOTAL HEMOGLOBIN 9.4 G/dl (13.5-17.5)
[2024-07-20] MEDS: propofol 1000mg/100ml bottle 100 ML IV PRN (04:33)
[2024-07-20 05:09] LABS: BASOPHILS % (AUTO) 0.2 % (0-1); EOSINOPHILS % (AUTO) 0 % (0-6); HEMOGLOBIN 8.3 g/dl (14.0-17.9); MONOCYTES # (AUTO) 0.6 X10'3 (0-0.9)
[2024-07-20 05:11] LABS: HEMATOCRIT 26.2 % (42.0-52.0); LYMPHOCYTES # (AUTO) 0.2 X10'3 (1.1-4.8); LYMPHOCYTES % (AUTO) 2.2 % (21-51); MEAN CORPUSCULAR HEMOGLOBIN 25.7 PG (27.0-31.0); MEAN CORPUSCULAR HGB CONC 31.6 g/dL (33.0-36.5); MEAN CORPUSCULAR VOLUME 81.3 FL (78-98); MEAN PLATELET VOLUME 8.6 FL (7.4-10.4); MONOCYTES % (AUTO) 6.2 % (2-12); NEUTROPHILS # (AUTO) 8.4 X10'3 (1.8-7.7); NEUTROPHILS % (AUTO) 91.4 % (42-75); PLATELET COUNT 63 X10'3 (140-440); RED BLOOD COUNT 3.22 X10'6 (4.70-6.10); RED CELL DISTRIBUTION WIDTH 21.1 % (11.5-14.5); WHITE BLOOD COUNT 9.1 X10'3 (4.5-11.0)
[2024-07-20 05:14] LABS: ALANINE AMINOTRANSFERASE 27 U/L (12-78); ALBUMIN 2.6 G/DL (3.4-5.0); ALBUMIN/GLOBULIN RATIO 0.6 (1.1-1.5); ALKALINE PHOSPHATASE 103 IU/L (46-116); ANION GAP 8 (8-16); ASPARTATE AMINO TRANSFERASE 71 U/L (10-37); BILIRUBIN,TOTAL 2.4 MG/DL (0.1-1.0); BLOOD UREA NITROGEN 8 MG/DL (7-18); BUN/CREATININE RATIO 6.9 (10.0-20.0); CALCIUM 7.6 MG/DL (8.5-10.1); CHLORIDE 103 MMOL/L (99-107); CREATININE 1.16 MG/DL (0.60-1.10); GLUCOSE 160 MG/DL (70-104); MAGNESIUM 2.5 MG/DL (1.5-2.4); PHOSPHORUS 5.6 MG/DL (2.3-4.5); POTASSIUM 4.1 MMOL/L (3.5-5.1); SODIUM 133 MMOL/L (135-145); TOTAL CARBON DIOXIDE 22.1 MMOL/L (24-32); TOTAL PROTEIN 6.8 G/DL (6.4-8.2); TRIGLYCERIDES 78 MG/DL (20-135); eCRCL 96 ML/MIN; eGFR 74 ML/MIN
[2024-07-20] MEDS: NORepinephrine 8mg/ 250ml NS 250 ML IV ONE (07:01)
[2024-07-20] MEDS ORDERED: rocuronium 10mg/ml inj IV ONE (08:00)
[2024-07-20] MEDS ORDERED: OMEP40CA21 PO (08:04)
[2024-07-20] MEDS ORDERED: CARV6.2553 PO (08:04)
[2024-07-20] MEDS ORDERED: POTA-206 PO (08:04)
[2024-07-20] MEDS ORDERED: HYDR50TA65 PO (08:04)
[2024-07-20] MEDS ORDERED: ACAM333T8 PO (08:04)
[2024-07-20] MEDS ORDERED: FURO40TA4 PO (08:04)
[2024-07-20] MEDS: VANCOmycin 1250MG/NS 250ml Bag 250 ML IV SCH (10:00)
[2024-07-20] MEDS: CefTRIAXone 2gm/D5W 50ml BAG 50 ML IV SCH (10:00)
[2024-07-20] MEDS: FENTANYL-0.9 % NACL/PF 100 ML IV SCH (10:00)
[2024-07-20] MEDS ORDERED: octreotide inj. 1,250 MCG in normal saline 250ml IV soln 243.75 ML IV SCH (11:07)
[2024-07-20] MEDS: lactulose 20gm/30ml cup PO SCH (11:14)
[2024-07-20] MEDS ORDERED: pantoprazole 40 MG vial IV SCH (11:15)
[2024-07-20] MEDS: NORepinephrine 8mg/ 250ml NS 250 ML IV SCH (11:20)
[2024-07-20 11:26] LABS: HEMATOCRIT 28.1 % (42.0-52.0); HEMOGLOBIN 8.8 g/dl (14.0-17.9); MEAN CORPUSCULAR HEMOGLOBIN 25.6 PG (27.0-31.0); MEAN CORPUSCULAR HGB CONC 31.4 g/dL (33.0-36.5); MEAN CORPUSCULAR VOLUME 81.4 FL (78-98); MEAN PLATELET VOLUME 8.5 FL (7.4-10.4); PLATELET COUNT 99 X10'3 (140-440); RED BLOOD COUNT 3.46 X10'6 (4.70-6.10); WHITE BLOOD COUNT 14.9 X10'3 (4.5-11.0)
[2024-07-20 11:40] LABS: INR 1.4 INR; PROTHROMBIN TIME 14.6 SECONDS (9.0-12.0)
[2024-07-20] MEDS: octreotide inj. 500 MCG in normal saline 100ml IV soln 97.5 ML IV SCH (13:00)
[2024-07-20] MEDS: MVI, adult No.4 with vit. K 10 ML in dextrose 5% water 500ml 500 ML IV SCH (13:00)
[2024-07-20] MEDS: pantoprazole 40MG/NS 100ML BAG 100 ML IV SCH (13:06)
[2024-07-20] MEDS: folic acid 1mg/0.2ml inj IV SCH (13:07)
[2024-07-20] MEDS: thiamine 100mg/ml 2ml inj. IV SCH (13:07)
[2024-07-20] MEDS ORDERED: epiNEPHrine 0.1mg/ml 10ml syringe ONE (14:01)
[2024-07-20] MEDS ORDERED: fentaNYL/PF 50MCG/1 ML 2ML syringe ONE (14:32)
[2024-07-20] MEDS ORDERED: MIDAZolam 1 MG/ML 5ML VIAL ONE (14:33)
[2024-07-20] MEDS ORDERED: LIDOcaine 2% Viscous 15ml cup ONE (14:33)
[2024-07-20 16:18] LABS: HEMATOCRIT 29.6 % (42.0-52.0); HEMOGLOBIN 9.1 g/dl (14.0-17.9); MEAN CORPUSCULAR HGB CONC 30.6 g/dL (33.0-36.5); MEAN CORPUSCULAR VOLUME 81.8 FL (78-98); MEAN PLATELET VOLUME 8.5 FL (7.4-10.4); PLATELET COUNT 117 X10'3 (140-440); RED BLOOD COUNT 3.62 X10'6 (4.70-6.10); RED CELL DISTRIBUTION WIDTH 21.3 % (11.5-14.5); WHITE BLOOD COUNT 14.8 X10'3 (4.5-11.0)
[2024-07-20] MEDS ORDERED: fentaNYL 50mcg/ml PF inj. 2,500 MCG in normal saline 250ml IV soln 200 ML IV SCH (17:20)
[2024-07-20] MEDS ORDERED: FENTANYL-0.9 % NACL/PF 100 ML IV SCH (17:35)
[2024-07-20] MEDS: FENTANYL 1000MCG/NS 100 ML BAG /PF IV SCH (17:47)
[2024-07-20] MEDS: levetiracetam inj 1,500 MG in normal saline 100ml IV soln 100 ML IV SCH (21:42)
[2024-07-20 23:27] LABS: HEMATOCRIT 27.6 % (42.0-52.0); HEMOGLOBIN 8.8 g/dl (14.0-17.9); MEAN CORPUSCULAR HEMOGLOBIN 25.5 PG (27.0-31.0); MEAN CORPUSCULAR HGB CONC 31.9 g/dL (33.0-36.5); MEAN PLATELET VOLUME 7.8 FL (7.4-10.4); PLATELET COUNT 93 X10'3 (140-440); RED BLOOD COUNT 3.45 X10'6 (4.70-6.10); RED CELL DISTRIBUTION WIDTH 21.2 % (11.5-14.5); WHITE BLOOD COUNT 11.3 X10'3 (4.5-11.0)
[2024-07-21] VITALS (61 sets, daily range): BP systolic 90–133; BP diastolic 41–80; PULSE 76–113; RESP 12–24; O2SAT 91–98
[2024-07-21 04:26] LABS: ABG BASE EXCESS -1.1 mmol/L (-2.0-3.0); ABG HCO3 24.2 mmol/L (21.0-28.0); ABG OXYGEN SATURATION 99.5 % (94.0-98.0); ABG PCO2 (T) 42.9 mmHg (35.0-48.0); ABG PH (T) 7.369 (7.350-7.450); ABG PO2 (T) 178.9 mmHg (83.0-108.0); ALLEN'S TEST Modified; FCOHb 0.1 % (0.5-1.5); FHHb 0.5 % (0.0-5.0); FO2Hb 99.4 % (94.0-98.0); MODE CMV PRVC IT 0.9; PATIENT TEMPERATURE 36.8; PEEP 8 cm H2O; RESPIRATORY RATE 16 b/min; TIDAL VOLUME 450 mL; TOTAL HEMOGLOBIN 9.7 G/dl (13.5-17.5)
[2024-07-21 04:36] LABS: BASOPHILS # (AUTO) 0.1 X10'3 (0-0.2); EOSINOPHILS # (AUTO) 0.1 X10'3 (0-0.9); EOSINOPHILS % (AUTO) 1.6 % (0-6); HEMATOCRIT 27.4 % (42.0-52.0); HEMOGLOBIN 8.8 g/dl (14.0-17.9); LYMPHOCYTES # (AUTO) 0.8 X10'3 (1.1-4.8); LYMPHOCYTES % (AUTO) 8.6 % (21-51); MEAN CORPUSCULAR HEMOGLOBIN 25.7 PG (27.0-31.0); MEAN CORPUSCULAR VOLUME 80.3 FL (78-98); MEAN PLATELET VOLUME 8.2 FL (7.4-10.4); MONOCYTES # (AUTO) 1.2 X10'3 (0-0.9); MONOCYTES % (AUTO) 13.5 % (2-12); NEUTROPHILS % (AUTO) 75.3 % (42-75); PLATELET COUNT 83 X10'3 (140-440); RED BLOOD COUNT 3.42 X10'6 (4.70-6.10); RED CELL DISTRIBUTION WIDTH 20.9 % (11.5-14.5); WHITE BLOOD COUNT 9.3 X10'3 (4.5-11.0)
[2024-07-21 04:41] LABS: ALANINE AMINOTRANSFERASE 29 U/L (12-78); ALBUMIN 2.7 G/DL (3.4-5.0); ALBUMIN/GLOBULIN RATIO 0.6 (1.1-1.5); ALKALINE PHOSPHATASE 94 IU/L (46-116); ANION GAP 4 (8-16); ASPARTATE AMINO TRANSFERASE 81 U/L (10-37); BILIRUBIN,TOTAL 3.5 MG/DL (0.1-1.0); BLOOD UREA NITROGEN 10 MG/DL (7-18); BUN/CREATININE RATIO 11.9 (10.0-20.0); CHLORIDE 105 MMOL/L (99-107); CREATININE 0.84 MG/DL (0.60-1.10); GLUCOSE 128 MG/DL (70-104); POTASSIUM 4.4 MMOL/L (3.5-5.1); SODIUM 136 MMOL/L (135-145); TOTAL CARBON DIOXIDE 26.7 MMOL/L (24-32); TOTAL PROTEIN 6.9 G/DL (6.4-8.2); eCRCL 133 ML/MIN; eGFR > 90 ML/MIN
[2024-07-21 04:44] LABS: MAGNESIUM 2.3 MG/DL (1.5-2.4); PHOSPHORUS 3.6 MG/DL (2.3-4.5)
[2024-07-21 05:08] LABS: APTT 30 SECONDS (22-32); INR 1.5 INR; PROTHROMBIN TIME 15.1 SECONDS (9.0-12.0)
[2024-07-21 05:11] LABS: ANISOCYTOSIS 3+; PLATELET ESTIMATE DECREASED
[2024-07-21 05:13] LABS: POLYCHROMASIA FEW; TEAR DROP CELLS FEW
[2024-07-21 05:14] LABS: BURR CELLS 1+; ELLIPTOCYTES 1+; POIKILOCYTOSIS 2+
[2024-07-21 10:12] LABS: HEMATOCRIT 25.3 % (42.0-52.0); HEMOGLOBIN 8.1 g/dl (14.0-17.9); MEAN CORPUSCULAR HEMOGLOBIN 25.7 PG (27.0-31.0); MEAN CORPUSCULAR HGB CONC 31.8 g/dL (33.0-36.5); MEAN CORPUSCULAR VOLUME 80.7 FL (78-98); MEAN PLATELET VOLUME 8.3 FL (7.4-10.4); PLATELET COUNT 69 X10'3 (140-440); RED BLOOD COUNT 3.14 X10'6 (4.70-6.10); RED CELL DISTRIBUTION WIDTH 20.9 % (11.5-14.5); WHITE BLOOD COUNT 7.7 X10'3 (4.5-11.0)
[2024-07-21] MEDS: ondansetron/PF 4mg/2ml inj IV PRN (12:07)
[2024-07-21] MEDS: furosemide 10 MG/1 ML 10ml inj IV ONE (12:55)
[2024-07-21 12:57] LABS: ABG BASE EXCESS -3.3 mmol/L (-2.0-3.0); ABG HCO3 21.4 mmol/L (21.0-28.0); ABG OXYGEN SATURATION 92.3 % (94.0-98.0); ABG PCO2 (T) 38.6 mmHg (35.0-48.0); ABG PH (T) 7.366 (7.350-7.450); ABG PO2 (T) 70.8 mmHg (83.0-108.0); ALLEN'S TEST POSITIVE; FCOHb 0.2 % (0.5-1.5); FHHb 7.7 % (0.0-5.0); FLOW 12 L/min; FMetHb 0.3 % (0.0-1.5); FO2Hb 91.8 % (94.0-98.0); MODE HIGH FLOW; TOTAL HEMOGLOBIN 9.4 G/dl (13.5-17.5)
[2024-07-21] MEDS: ketorolac trometh 15mg/ml vial 15 MG/ML ML IV PRN (13:43)
[2024-07-21] MEDS: ipratropium/albuterol 3ml nebule NEB SCH (15:46)
[2024-07-21] MEDS: acetaminophen 325mg tablet PO PRN (16:25)
[2024-07-21] MEDS: VANCOMYCIN LEVEL IV ONE (21:31)
[2024-07-22] VITALS (36 sets, daily range): BP systolic 81–142; BP diastolic 41–77; PULSE 74–105; RESP 10–24; O2SAT 84–99
[2024-07-22 02:56] LABS: EOSINOPHILS # (AUTO) 0.1 X10'3 (0-0.9); EOSINOPHILS % (AUTO) 2.3 % (0-6); HEMOGLOBIN 7.3 g/dl (14.0-17.9); LYMPHOCYTES # (AUTO) 0.6 X10'3 (1.1-4.8); MEAN CORPUSCULAR HEMOGLOBIN 25.3 PG (27.0-31.0); MEAN CORPUSCULAR HGB CONC 31.7 g/dL (33.0-36.5); MONOCYTES # (AUTO) 0.6 X10'3 (0-0.9); WHITE BLOOD COUNT 4.6 X10'3 (4.5-11.0)
[2024-07-22 03:00] LABS: HEMATOCRIT 22.9 % (42.0-52.0); LYMPHOCYTES % (AUTO) 13.7 % (21-51); MEAN CORPUSCULAR VOLUME 79.9 FL (78-98); MEAN PLATELET VOLUME 8.3 FL (7.4-10.4); MONOCYTES % (AUTO) 13.4 % (2-12); NEUTROPHILS # (AUTO) 3.2 X10'3 (1.8-7.7); NEUTROPHILS % (AUTO) 69.6 % (42-75); PLATELET COUNT 54 X10'3 (140-440); RED BLOOD COUNT 2.87 X10'6 (4.70-6.10); RED CELL DISTRIBUTION WIDTH 20.7 % (11.5-14.5)
[2024-07-22 03:07] LABS: APTT 29 SECONDS (22-32); INR 1.5 INR; PROTHROMBIN TIME 15.5 SECONDS (9.0-12.0)
[2024-07-22 03:21] LABS: ALANINE AMINOTRANSFERASE 28 U/L (12-78); ALBUMIN 2.5 G/DL (3.4-5.0); ALBUMIN/GLOBULIN RATIO 0.6 (1.1-1.5); ALKALINE PHOSPHATASE 75 IU/L (46-116); ANION GAP 3 (8-16); ASPARTATE AMINO TRANSFERASE 83 U/L (10-37); BILIRUBIN,TOTAL 3.1 MG/DL (0.1-1.0); BLOOD UREA NITROGEN 11 MG/DL (7-18); BUN/CREATININE RATIO 12.5 (10.0-20.0); CALCIUM 7.5 MG/DL (8.5-10.1); CHLORIDE 104 MMOL/L (99-107); CREATININE 0.88 MG/DL (0.60-1.10); GLUCOSE 100 MG/DL (70-104); MAGNESIUM 1.7 MG/DL (1.5-2.4); PHOSPHORUS 2.8 MG/DL (2.3-4.5); POTASSIUM 3.4 MMOL/L (3.5-5.1); SODIUM 136 MMOL/L (135-145); TOTAL CARBON DIOXIDE 28.6 MMOL/L (24-32); TOTAL PROTEIN 6.4 G/DL (6.4-8.2); eCRCL 127 ML/MIN; eGFR > 90 ML/MIN
[2024-07-22 04:13] LABS: ANISOCYTOSIS 3+; PLATELET ESTIMATE DECREASED
[2024-07-22 04:14] LABS: HYPOCHROMASIA 2+; MICROCYTOSIS 1+; POLYCHROMASIA 1+; STOMATOCYTES FEW; TARGET CELLS FEW
[2024-07-22] MEDS: pantoprazole 40 MG vial IV SCH (08:25)
[2024-07-22] MEDS: folic acid 1mg tablet PO SCH (09:00)
[2024-07-22] MEDS ORDERED: hydrOXYzine 25 MG tablet PO PRN (09:00)
[2024-07-22] MEDS: calcium gluconate inj. 2 GM in normal saline 100ml IV soln 100 ML IV ONE (10:52)
[2024-07-22] MEDS ORDERED: potassium Cl 20mEq/100mL bag 100 ML IV PRN (11:10)
[2024-07-22] MEDS ORDERED: potassium Cl 20 mEq SR tablet PO PRN (11:10)
[2024-07-22] MEDS: ACAMPROSATE CALCIUM 333 MG PO SCH (13:00)
[2024-07-22] MEDS: gabapentin 300mg capsule PO SCH (13:32)
[2024-07-22] MEDS: potassium Cl 40MEQ/270ML bag 250 ML IV PRN (15:07)
[2024-07-22] MEDS: magnesium sulf-water 4G/100mL 100 ML IV PRN (15:15)
[2024-07-22] MEDS: magnesium sulf-water 2g/50mL 50 ML IV PRN (17:32)
[2024-07-23] VITALS (36 sets, daily range): BP systolic 82–123; BP diastolic 30–78; PULSE 86–102; RESP 11–24; TEMP 97.9–98.8; O2SAT 84–99
[2024-07-23 03:17] LABS: EOSINOPHILS # (AUTO) 0.1 X10'3 (0-0.9); EOSINOPHILS % (AUTO) 3.8 % (0-6); LYMPHOCYTES # (AUTO) 0.4 X10'3 (1.1-4.8); MONOCYTES # (AUTO) 0.4 X10'3 (0-0.9); WHITE BLOOD COUNT 2.7 X10'3 (4.5-11.0)
[2024-07-23 03:19] LABS: BASOPHILS % (AUTO) 1.2 % (0-1); LYMPHOCYTES % (AUTO) 15.8 % (21-51); MEAN CORPUSCULAR HEMOGLOBIN 25.3 PG (27.0-31.0); MEAN CORPUSCULAR HGB CONC 31.5 g/dL (33.0-36.5); MEAN CORPUSCULAR VOLUME 80.5 FL (78-98); MEAN PLATELET VOLUME 8.3 FL (7.4-10.4); MONOCYTES % (AUTO) 14.4 % (2-12); NEUTROPHILS # (AUTO) 1.7 X10'3 (1.8-7.7); NEUTROPHILS % (AUTO) 64.8 % (42-75); RED BLOOD COUNT 2.63 X10'6 (4.70-6.10); RED CELL DISTRIBUTION WIDTH 21.4 % (11.5-14.5)
[2024-07-23 03:30] LABS: HEMOGLOBIN 6.7 g/dl (14.0-17.9)
[2024-07-23 03:31] LABS: HEMATOCRIT 21.2 % (42.0-52.0); PLATELET COUNT 47 X10'3 (140-440)
[2024-07-23 03:35] LABS: ALANINE AMINOTRANSFERASE 21 U/L (12-78); ALBUMIN 2.2 G/DL (3.4-5.0); ALBUMIN/GLOBULIN RATIO 0.6 (1.1-1.5); ALKALINE PHOSPHATASE 77 IU/L (46-116); ANION GAP 3 (8-16); ASPARTATE AMINO TRANSFERASE 65 U/L (10-37); BLOOD UREA NITROGEN 8 MG/DL (7-18); BUN/CREATININE RATIO 10.4 (10.0-20.0); CALCIUM 7.3 MG/DL (8.5-10.1); CHLORIDE 104 MMOL/L (99-107); CREATININE 0.77 MG/DL (0.60-1.10); GLUCOSE 99 MG/DL (70-104); PHOSPHORUS 3.1 MG/DL (2.3-4.5); POTASSIUM 3.6 MMOL/L (3.5-5.1); SODIUM 134 MMOL/L (135-145); TOTAL CARBON DIOXIDE 26.9 MMOL/L (24-32); TOTAL PROTEIN 5.9 G/DL (6.4-8.2); eCRCL 145 ML/MIN; eGFR > 90 ML/MIN
[2024-07-23 03:37] LABS: APTT 31 SECONDS (22-32); INR 1.5 INR; PROTHROMBIN TIME 15.2 SECONDS (9.0-12.0)
[2024-07-23] MEDS ORDERED: spironolactone 25 MG tablet PO SCH (08:00)
[2024-07-23] MEDS ORDERED: furosemide 40mg tablet PO SCH (08:00)
[2024-07-23 09:12] LABS: HEMATOCRIT 23.8 % (42.0-52.0); HEMOGLOBIN 7.5 g/dl (14.0-17.9); MEAN CORPUSCULAR HEMOGLOBIN 25.7 PG (27.0-31.0); MEAN CORPUSCULAR HGB CONC 31.4 g/dL (33.0-36.5); MEAN CORPUSCULAR VOLUME 81.7 FL (78-98); MEAN PLATELET VOLUME 8.2 FL (7.4-10.4); RED BLOOD COUNT 2.92 X10'6 (4.70-6.10); RED CELL DISTRIBUTION WIDTH 21.5 % (11.5-14.5); WHITE BLOOD COUNT 2.7 X10'3 (4.5-11.0)
[2024-07-23 09:20] LABS: PLATELET COUNT 47 X10'3 (140-440)
[2024-07-23] MEDS ORDERED: ipratropium/albuterol 3ml nebule NEB PRN (09:30)
[2024-07-23] MEDS ORDERED: LORazepam 2 mg/ml vial IV PRN (17:45)
[2024-07-23 18:59] LABS: HEMATOCRIT 25.3 % (42.0-52.0); MEAN CORPUSCULAR HEMOGLOBIN 25.7 PG (27.0-31.0); MEAN CORPUSCULAR VOLUME 81.3 FL (78-98); MONOCYTES # (AUTO) 0.4 X10'3 (0-0.9); NEUTROPHILS # (AUTO) 2.1 X10'3 (1.8-7.7); RED BLOOD COUNT 3.11 X10'6 (4.70-6.10)
[2024-07-23 19:01] LABS: BASOPHILS % (AUTO) 0.6 % (0-1); EOSINOPHILS # (AUTO) 0.2 X10'3 (0-0.9); EOSINOPHILS % (AUTO) 5.2 % (0-6); LYMPHOCYTES # (AUTO) 0.4 X10'3 (1.1-4.8); LYMPHOCYTES % (AUTO) 12.3 % (21-51); MEAN CORPUSCULAR HGB CONC 31.6 g/dL (33.0-36.5); MEAN PLATELET VOLUME 8.1 FL (7.4-10.4); NEUTROPHILS % (AUTO) 67.9 % (42-75); PLATELET COUNT 51 X10'3 (140-440); RED CELL DISTRIBUTION WIDTH 21.1 % (11.5-14.5)
[2024-07-23 19:20] LABS: ALANINE AMINOTRANSFERASE 25 U/L (12-78); ALBUMIN 2.3 G/DL (3.4-5.0); ALBUMIN/GLOBULIN RATIO 0.6 (1.1-1.5); ALKALINE PHOSPHATASE 89 IU/L (46-116); ANION GAP 6 (8-16); ASPARTATE AMINO TRANSFERASE 62 U/L (10-37); BILIRUBIN,TOTAL 2.1 MG/DL (0.1-1.0); BLOOD UREA NITROGEN 5 MG/DL (7-18); BUN/CREATININE RATIO 6.5 (10.0-20.0); CALCIUM 7.6 MG/DL (8.5-10.1); CHLORIDE 104 MMOL/L (99-107); CREATININE 0.77 MG/DL (0.60-1.10); GLUCOSE 111 MG/DL (70-104); POTASSIUM 3.8 MMOL/L (3.5-5.1); SODIUM 136 MMOL/L (135-145); TOTAL CARBON DIOXIDE 25.9 MMOL/L (24-32); TOTAL PROTEIN 6.2 G/DL (6.4-8.2); eCRCL 145 ML/MIN; eGFR > 90 ML/MIN
[2024-07-23] MEDS: LORazepam 1 MG tablet PO ONE (19:20)
[2024-07-23] MEDS ORDERED: LEVETIRACETAM IV SCH (22:44)
[2024-07-24] VITALS (16 sets, daily range): BP systolic 88–122; BP diastolic 33–71; PULSE 79–91; RESP 13–23; O2SAT 93–100
[2024-07-24 02:56] LABS: EOSINOPHILS # (AUTO) 0.1 X10'3 (0-0.9); HEMATOCRIT 24.5 % (42.0-52.0); HEMOGLOBIN 7.7 g/dl (14.0-17.9); LYMPHOCYTES # (AUTO) 0.4 X10'3 (1.1-4.8); MEAN CORPUSCULAR HEMOGLOBIN 25.4 PG (27.0-31.0); MEAN PLATELET VOLUME 8.3 FL (7.4-10.4)
[2024-07-24 02:58] LABS: BASOPHILS % (AUTO) 1.1 % (0-1); EOSINOPHILS % (AUTO) 5.2 % (0-6); LYMPHOCYTES % (AUTO) 13.9 % (21-51); MEAN CORPUSCULAR HGB CONC 31.2 g/dL (33.0-36.5); MEAN CORPUSCULAR VOLUME 81.6 FL (78-98); MONOCYTES # (AUTO) 0.4 X10'3 (0-0.9); MONOCYTES % (AUTO) 13.7 % (2-12); NEUTROPHILS # (AUTO) 1.8 X10'3 (1.8-7.7); NEUTROPHILS % (AUTO) 66.1 % (42-75); RED BLOOD COUNT 3.01 X10'6 (4.70-6.10); RED CELL DISTRIBUTION WIDTH 21.4 % (11.5-14.5); WHITE BLOOD COUNT 2.7 X10'3 (4.5-11.0)
[2024-07-24 03:08] LABS: PLATELET COUNT 49 X10'3 (140-440)
[2024-07-24 03:13] LABS: APTT 31 SECONDS (22-32); INR 1.6 INR; PROTHROMBIN TIME 16.1 SECONDS (9.0-12.0)
[2024-07-24 03:16] LABS: ALANINE AMINOTRANSFERASE 20 U/L (12-78); ALBUMIN 2.1 G/DL (3.4-5.0); ALBUMIN/GLOBULIN RATIO 0.6 (1.1-1.5); ALKALINE PHOSPHATASE 78 IU/L (46-116); ANION GAP 4 (8-16); ASPARTATE AMINO TRANSFERASE 54 U/L (10-37); BILIRUBIN,TOTAL 2.3 MG/DL (0.1-1.0); BLOOD UREA NITROGEN 5 MG/DL (7-18); BUN/CREATININE RATIO 6.8 (10.0-20.0); CALCIUM 7.4 MG/DL (8.5-10.1); CHLORIDE 105 MMOL/L (99-107); CREATININE 0.73 MG/DL (0.60-1.10); GLUCOSE 93 MG/DL (70-104); MAGNESIUM 1.4 MG/DL (1.5-2.4); POTASSIUM 3.7 MMOL/L (3.5-5.1); SODIUM 136 MMOL/L (135-145); TOTAL CARBON DIOXIDE 27.1 MMOL/L (24-32); TOTAL PROTEIN 5.5 G/DL (6.4-8.2); eCRCL 153 ML/MIN; eGFR > 90 ML/MIN
[2024-07-24] MEDS: LEVETIRACETAM IV SCH (07:29)
[2024-07-24] MEDS ORDERED: lactulose 20gm/30ml cup PO SCH (11:17)
[2024-07-24] MEDS: furosemide 20MG tablet PO SCH (11:45)
[2024-07-24] MEDS ORDERED: MULT-25 PO (13:12)
[2024-07-24] MEDS ORDERED: thiamine tablet PO (13:12)
[2024-07-24] MEDS ORDERED: lactose-reduced food (Ensure Enlive) - 237ml bottle PO SCH (17:30)
[2024-07-24] MEDS ORDERED: thiamine 100mg tablet PO SCH (20:00)
[2024-07-24] MEDS ORDERED: levetiracetam 250mg tablet PO SCH (20:00)
[2024-07-24] MEDS ORDERED: spironolactone 25 MG tablet PO SCH (21:00)
[2024-07-25] MEDS ORDERED: multivitamins, therapeutics tablet PO SCH (08:00)
== END 2024-07-24 15:24 | disposition home or self-care (01) | DRG 241 ==
LOC: ER 21:03 → ED HOLD 07-20 01:58 → CICU 2S 07-20 04:25
PROVIDERS: ADMIT Student in an Organized Health Care Education/Training Program; ATTEND Student in an Organized Health Care Education/Training Program
PROC: BW211ZZ Computerized Tomography (CT Scan) of Abdomen and Pelvis using Low Osmolar Contrast (ICD-10-PCS; 2024-07-19)
PROC: 4A10X4Z Monitoring of Central Nervous Electrical Activity, External Approach (ICD-10-PCS; 2024-07-19)
PROC: 0BH17EZ Insertion of Endotracheal Airway into Trachea, Via Natural or Artificial Opening (ICD-10-PCS; principal; 2024-07-20)
PROC: 06L38CZ Occlusion of Esophageal Vein with Extraluminal Device, Via Natural or Artificial Opening Endoscopic (ICD-10-PCS; 2024-07-20)
PROC: 0W3P8ZZ Control Bleeding in Gastrointestinal Tract, Via Natural or Artificial Opening Endoscopic (ICD-10-PCS; 2024-07-20)
PROC: 5A1945Z Respiratory Ventilation, 24-96 Consecutive Hours (ICD-10-PCS; 2024-07-20)
PROC: 02HV33Z Insertion of Infusion Device into Superior Vena Cava, Percutaneous Approach (ICD-10-PCS; 2024-07-20)
PROC: B548ZZA Ultrasonography of Superior Vena Cava, Guidance (ICD-10-PCS; 2024-07-20)
PROC: 5A0935A Assistance with Respiratory Ventilation, Less than 24 Consecutive Hours, High Flow/Velocity Cannula (ICD-10-PCS; 2024-07-21)
PROC: 5A0935A Assistance with Respiratory Ventilation, Less than 24 Consecutive Hours, High Flow/Velocity Cannula (ICD-10-PCS; 2024-07-22)
PROC: 30233N1 Transfusion of Nonautologous Red Blood Cells into Peripheral Vein, Percutaneous Approach (ICD-10-PCS; 2024-07-23)
PROC: 5A0935A Assistance with Respiratory Ventilation, Less than 24 Consecutive Hours, High Flow/Velocity Cannula (ICD-10-PCS; 2024-07-23)
DX: K25.4 Chronic or unspecified gastric ulcer with hemorrhage (principal); J96.01 Acute respiratory failure with hypoxia; N17.0 Acute kidney failure with tubular necrosis; G40.901 Epilepsy, unspecified, not intractable, with status epilepticus; I50.21 Acute systolic (congestive) heart failure; D61.818 Other pancytopenia; I85.11 Secondary esophageal varices with bleeding; K70.30 Alcoholic cirrhosis of liver without ascites; K76.6 Portal hypertension; K29.71 Gastritis, unspecified, with bleeding; I21.A1 Myocardial infarction type 2; K31.811 Angiodysplasia of stomach and duodenum with bleeding; K72.10 Chronic hepatic failure without coma; I42.9 Cardiomyopathy, unspecified; D62 Acute posthemorrhagic anemia; K76.82 Hepatic encephalopathy; F10.20 Alcohol dependence, uncomplicated; E83.51 Hypocalcemia; E87.6 Hypokalemia; G93.89 Other specified disorders of brain; Z83.3 Family history of diabetes mellitus
CPT/HCPCS: 36415; 36430; 36600; 43235; 43244; 43255; 70450; 71045; 71250; 74176; 80048; 80053; 80177; 80185; 80202; 80305; 80320; 81001; 82140; 82330; 82550; 82803; 82948; 83605; 83735; 84100; 84478; 84484; 85008; 85018; 85025; 85027; 85610; 85730; 86885; 86900; 86901; 86920; 87040; 87070; 87081; 87088; 93005; 93306; 94002; 94003; 94640; 94760; 95816; 96365; 96375; 99291; A4615; A6213; A6449; C1751; C1758; G0378; J0171; J0610; J0696; J1885; J1940; J1953; J2060; J2250; J2354; J2405; J2470; J2704; J3010; J3370; J3411; J3475; J3480; J3490; J7030; J7040; J7050; J7060; P9016; Q9967